=== PATIENT | female | born 2000 | race Caucasian/White ===

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

== ENCOUNTER 2018-12-10 23:52 | Inpatient (IN) ==
[2018-12-11] MEDS ORDERED: SODIUM CHLORIDE 0.9% 1000ML 1,000 ML IV ONE (00:13)
[2018-12-11] MEDS ORDERED: KETOROLAC (**for OR use only**) 30 MG/ML VIAL IV ONE (00:13)
[2018-12-11] MEDS ORDERED: KETOROLAC 30 MG/ML VIAL ONE (00:18)
[2018-12-11 00:30] LABS: Basophils # (auto) 0.05 K/uL (0-0.2); Basophils % (auto) 0.4 %; Eosinophils # (auto) 0.13 K/uL (0-0.5); Eosinophils % (auto) 1.1 %; Hematocrit (blood only) 42.6 % (37-47); Hemoglobin 14.2 g/dL (12.0-16.0); Immature Granulocytes # (auto) 0.03 K/uL (0.00-0.02); Immature Granulocytes % (auto) 0.3 %; Lymphocytes # (auto) 4.35 K/uL (1.2-3.4); Lymphocytes % (auto) 36.9 %; Mean Corpuscular Hgb Conc 33.3 g/dL (32-36); Mean Corpuscular Volume 89.9 fL (80-100); Mean Platelet Volume 9.9 fL (7.4-10.4); Monocytes # (auto) 0.85 K/uL (0.11-0.59); Monocytes % (auto) 7.2 %; Neutrophils # (auto) 6.39 K/uL (1.4-6.5); Neutrophils % (auto) 54.1 %; Platelet Count 380 K/uL (130-400); RDW Coefficient of Variation 13.3 % (11.5-14.5); Red Blood Count 4.74 M/uL (4.2-5.4)
[2018-12-11 00:52] LABS: Albumin Level 3.6 gm/dl (3.4-5.0); BUN Creatinine Ratio 11.6 (10-20); Calcium 9.1 mg/dl (8.5-10.1); Creatinine Clr Calc Pharmacy 72.4 ml/min; Est GFR (African American) 86.5; Est GFR (Non-African American) 74.7; Potassium 3.3 mmol/L (3.5-5.1)
[2018-12-11 00:54] LABS: D Dimer 2760 ug/L FEU (0-500)
[2018-12-11 01:03] LABS: Albumin Globulin Ratio 0.8 (0.9-2); Bilirubin,Total 0.4 mg/dl (0.2-1); Globulin 4.6 gm/dl (2.5-4.0); Total Protein 8.2 gm/dl (6.4-8.2); Troponin I 5.15 ng/ml (0-0.045)
[2018-12-11] MEDS ORDERED: ASPIRIN CHEW 324 MG PO STA (01:08)
[2018-12-11] MEDS ORDERED: OPTIRAY 320 125ml IV PRN (01:11)
--- NOTE | 2018-12-11 02:09 | Emergency Department Note ---
Entered by Dina Banegas acting as a scribe for History of Present Illness General Chief complaint: Chest Pain Stated complaint: CHEST PAIN,NUMBNESS IN HANDS AND FEET Source: patient History of Present Illness Onset (ago): minute(s) 45 Location: chest (center), left (hand, leg) and right (hand, leg) Pain Consistency: + other (sudden) Maximum Pain Intensity: 8 Quality: + other (chest pain) Associated symptoms: + other (Positive tingling and numbness in her hands and feet) The patient is a 18 year old female who presents to the Emergency Room with complaints of chest pain beginning 45 minutes fire [employer]. She reports she was watching TV when she suddenly developed chest pain. She notes that the pain is in the middle of her chest. It is worse with breathing/deep inspiration. She also notes that it does get worse when she moves either of her arms across her chest. She denies any other exacerbating or remitting factors. She notes she has tingling and numbness in her hands and feet. 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 Patient denies diabetes, hypertension, hyperlipidemia, CAD, history of sudden at a young age, and smoking. Does admit to a family history of heart disease. Patient denies swelling of calves, recent trips, history of immobilization or recent surgery, prior history of DVT, hemoptysis, history of malignancy, history of smoking. She does admit to using control. Denies any tearing pain going through to her back. Pain is not improved or worsened with sitting up or lying flat. She denies any recent upper respiratory symptoms or viral URIs. Home Medications Home Medications Medication Instructions Recorded Confirmed Type norethindrone-e.estradiol-iron 1 tab PO DAILY 12/11/18 12/11/18 History [Blisovi 24 Fe] Allergies Allergy/AdvReac Type Severity Reaction Status Date / Time No Known Allergies Allergy Unverified 12/11/18 00:22 Past Med/Surg History Medical History No significant past medical history Family History Other Heart disease Social History current occupational status: student Feels Safe at Home: Yes Smoking Status: Never smoker Review of Systems See HPI for pertinent positives & negatives. and A total of 10 systems reviewed and were otherwise negative Physical Exam Vital Signs Vital Signs - 24 hr 12/11/18 00:00 12/11/18 00:26 12/11/18 01:00 Temperature 36.5 C Temperature Source Oral Sepsis Recent Fever Within 48 Hours No Sepsis Action Taken by Nursing No Action Required Pulse Rate 79 71 Pulse Rate [Finger] 74 Pulse Rhythm Regular Pulse Strength Normal Respiratory Rate 18 20 Respiratory Effort / Characteristics Non-Labored Spontaneous Non-Labored Respiratory Depth Normal Normal Blood Pressure 147/94 H 129/85 Blood Pressure [Right Arm] 121/75 Blood Pressure Mean 111 99 Blood Pressure Mean [Right Arm] 90 Blood Pressure Position Sitting Blood Pressure Position [Right Arm] Lying Pulse Oximetry 100 99 Oxygen Delivery Method Room Air Room Air 12/11/18 01:19 12/11/18 01:40 Temperature Temperature Source Sepsis Recent Fever Within 48 Hours Sepsis Action Taken by Nursing Pulse Rate 64 Pulse Rate [Finger] 74 Pulse Rhythm Pulse Strength Respiratory Rate 15 22 Respiratory Effort / Characteristics Non-Labored Respiratory Depth Normal Blood Pressure Blood Pressure [Right Arm] 112/82 Blood Pressure Mean Blood Pressure Mean [Right Arm] 92 Blood Pressure Position Blood Pressure Position [Right Arm] Sitting Pulse Oximetry 93 98 Oxygen Delivery Method Room Air GENERAL: Laying in bed, anxious, no acute distress, non-toxic EYE EXAM: normal conjunctiva. OROPHARYNX: no exudate, no erythema, lips, buccal mucosa, and tongue normal and mucous membranes are moist NECK: supple, no nuchal rigidity, no adenopathy, non-tender LUNGS: Clear to auscultation. Normal chest wall mechanics CHEST: Reproducible anterior chest wall pain. Same as stated complaint. Worse with ABduction of BUE. HEART: no murmurs, S1 normal and S2 normal ABDOMEN: abdomen soft, non-tender, normo-active bowel, sounds, no masses, no rebound or guarding. BACK: Back is symmetrical on inspection and there is no deformity, no midline tenderness, no CVA tenderness. SKIN: no rashes and no bruising UPPER EXTREMITIES: upper extremities are grossly normal. LOWER EXTREMITIES: No pitting edema. Calves equal bilateral. Radial pulses equal bilateral. NEURO EXAM: Normal sensorium, cranial nerves II-XII grossly intact, normal speech, no gross weakness of arms, no gross weakness of legs. Course ED COURSE: Vital signs were reviewed and showed normotensive The patients medical record was reviewed The above diagnostic studies were performed and reviewed. ED treatments and interventions as stated above. 0006: The patient was evaluated in room C9. A complete history and physical examination was performed. 0130: Upon reevaluation, the patient is feeling better. I discussed my findings with the patient and she understands and agrees with the treatment plan. Based on the patients age, coexisting illnesses, exam and lab findings the decision to treat as an inpatient. The patient remained stable while under my care. Consultations Consultation #1: Discussed the case with Dr. Alex. He agrees with the current treatment/management and recommended aspirin which has already been given along with an echo in the morning. Recommend/agrees with holding heparin at this time as ACS unlikely. Consultation #2: Discussed with hospitalist for further evaluation. Administered Medications Ioversol (Optiray 320 125ml) 120 ml IV ONCE PRN PRN Reason: Interaction Checking Stop: 12/15/18 01:10 Last Admin: 12/11/18 01:12 Dose: 120 ml Discontinued Medications Aspirin (Aspirin) 324 mg PO NOW STA Stop: 12/11/18 01:09 Last Admin: 12/11/18 01:35 Dose: 324 mg Sodium Chloride (Nss 1000ml) 1,000 mls @ 999 mls/hr IV .Q1H1M ONE Stop: 12/11/18 01:13 Last Infusion: 12/11/18 01:36 Dose: 0 mls/hr Admin: 12/11/18 00:23 Dose: 999 mls/hr Ketorolac Tromethamine (Toradol (Or Use)) 30 mg IV ONE ONE Stop: 12/11/18 00:14 Last Admin: 12/11/18 00:23 Dose: Not Given Ketorolac Tromethamine (Toradol) Confirm Administered Dose 30 mg .ROUTE .STK- MED ONE Stop: 12/11/18 00:19 Last Admin: 12/11/18 00:22 Dose: 30 mg Medical Decision Making Differential Diagnosis Differential diagnoses includes but is not limited to acute coronary syndrome, myocardial infarction, pericarditis, pulmonary embolus, aortic dissection, pneumonia, pneumothorax, musculoskeletal, shingles, esophageal. Medical Records Attestation: I reviewed the patient's medical records. Home Medications Current Medication List: was personally reviewed by me Laboratory Data Attestation: I reviewed the patient's lab results. Result diagrams: 12/11/18 00:07 12/11/18 00:07 Lab Results 02/12/11/18 12/11/18 Range/Units 00:07 00:07 00:07 WBC 11.80 H (4.8-10.8) K/uL RBC 4.74 (4.2-5.4) M/uL Hgb 14.2 (12.0-16.0) g/dL Hct 42.6 (37-47) % MCV 89.9 (80-100) fL MCH 30.0 (25-34) pg MCHC 33.3 (32-36) g/dL RDW Std Deviation 44.0 (36.4-46.3) fL RDW Coeff of José Miguel 13.3 (11.5-14.5) % Plt Count 380 (130-400) K/uL MPV 9.9 (7.4-10.4) fL Immature Gran % (Auto) 0.3 % Neut % (Auto) 54.1 % Lymph % (Auto) 36.9 % Kingfisher % (Auto) 7.2 % Eos % (Auto) 1.1 % Baso % (Auto) 0.4 % Immature Gran # (Auto) 0.03 H (0.00-0.02) K/uL Neut # (Auto) 6.39 (1.4-6.5) K/uL Lymph # (Auto) 4.35 H (1.2-3.4) K/uL [place]isher # (Auto) 0.85 H (0.11-0.59) K/uL Eos # (Auto) 0.13 (0-0.5) K/uL Baso # (Auto) 0.05 (0-0.2) K/uL D-Dimer 2760 H* (0-500) ug/L FEU Sodium 136 (136-145) mmol/L Potassium 3.3 L (3.5-5.1) mmol/L Chloride 103 (98-107) mmol/L Carbon Dioxide 26 (21-32) mmol/L Anion Gap 7.0 (3-11) BUN 12 (7-18) mg/dl Creatinine 1.07 (0.6-1.2) mg/dl Est Cr Clr Drug Dosing 72.4 ml/min Est GFR ( Amer) 86.5 Est GFR (Non-Af Amer) 74.7 BUN/Creatinine Ratio 11.6 (10-20) Glucose 97 (70-99) mg/dl Calcium 9.1 (8.5-10.1) mg/dl Total Bilirubin 0.4 (0.2-1) mg/dl AST 55 H (15-37) U/L ALT 22 (12-78) U/L Alkaline Phosphatase 72 (45-117) U/L Total Creatine Kinase 379 H (26-192) U/L Troponin I 5.150 H* (0-0.045) ng/ml Total Protein 8.2 (6.4-8.2) gm/dl Albumin 3.6 (3.4-5.0) gm/dl Globulin 4.6 H (2.5-4.0) gm/dl Albumin/Globulin Ratio 0.8 L (0.9-2) Lipase 115 (73-393) U/L Imaging Data My Impression: Radiology results as stated below per my review and interpretation: X-ray: I interpreted the following studies. Chest: A one view study of the chest was reviewed and was negative for cardiomegaly, focal infiltrate, effusion, pulmonary edema, or wide mediastinum. No pneumothorax. Radiologist's Impression: CT PE performed of the chest shows no infiltrate, pleural effusions or pneumothorax. No PEs or aortic dissection/aneurysm. ECG Data Attestation: I personally reviewed and interpreted this ECG as follows: Indication: chest pain Rate (beats per minute): 69 Rhythm: sinus rhythm Findings: + other (normal axis, poor baseline in V3); no PVC Additional Comments: Repeat EKG shows sinus rhythm rate of 64 normal axis no PVCs with T wave flattening in the inferior leads. Blood Pressure Blood Pressure Findings: Normal blood pressure Blood Pressure Disposition: did not require urgent referral MDM Narrative Patient is a 18-year-old female with no significant past medical history that presents the ER for chest pain which started while watching TV. Pain is reproducible on exam and worsens with movement of arm across the chest. I do favor that this was musculoskeletal initially. Labs were obtained and showed a leukocytosis of 11.8. D-dimer was significantly elevated at 2600. BMP with mild hypokalemia. LFTs and bilirubin was unremarkable. Troponin was elevated at 5.1. Lipase was normal. Patient was sent for CT PE with a positive d-dimer which was negative for dissection PEs or any infiltrate. Patient was given Toradol and aspirin. Did have some mild improvement of symptoms. No AL depression or diffuse ST segment elevations on EKG to suggest pericarditis. With the elevated troponin I do favor myocarditis although no obvious respiratory or viral infection recently. CK was normal and does not suggest rhabdo. Based on her history this would be extremely unlikely to be ACS. Discussed with the superintendent power and he agreed with aspirin and recommended echo in the a.m. and holding on heparin at this time. Patient friends were updated at bedside. Discussed with the hospitalist and patient will be observed closely overnight for any changes. Impression & Plan Chest pain, Elevated troponin, Myocarditis Discharge Plan Visit Data Chief Complaint: Chest Pain Stated Complaint: CHEST PAIN,NUMBNESS IN HANDS AND FEET ED Provider: Alvarado Wilson Discharge Problem: Chest pain, Elevated troponin, Myocarditis Forms Stand Alone Forms: My [facility] Prescriptions Prescriptions: No Action norethindrone-e.estradiol-iron [Blisovi 24 Fe] 1 mg-20 mcg (24)/75 mg (4) Tablet 1 tab PO DAILY RF: 0 The scribe's documentation has been prepared under my direction and personally reviewed by me in its entirety. I confirm that the note above accurately reflects all work, treatment, procedures, and medical decision making performed by me.
--- NOTE | 2018-12-11 04:28 | History & Physical Report ---
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 She was not active nor exerting herself when the pain started and notes that nothing makes it better or worse. 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 She did have a similar instance of chest pain about 24 hours prior which did wake her up in the middle of the night, but subsided with an OTC pain reliever. She notes that she was recently standing for the entirety of [employer] at [employer], and that aside from losing her voice and dependent peripheral edema, she declines any other symptoms. She denies any sick contacts and denies illicit substance use as she is tested regularly for the [employer]. She is a social drinker on weekends, and drinks on average 3-4 drinks per day on weekends, upwards of 8 drinks at time, but no recent drinking. Family history of [place] in her father but after age 60. Only other meds she takes are OCP. Workup in the ER showed some ST changes, elevated DDimer, and an elevated troponin. CT for PE was negative. Allergies Allergy/AdvReac Type Severity Reaction Status Date / Time No Known Allergies Allergy Unverified 12/11/18 00:22 Home Medications Home Medications Medication Instructions Recorded Confirmed Type norethindrone-e.estradiol-iron 1 tab PO DAILY 12/11/18 12/11/18 History [Blisovi 24 Fe] Past Med/Surg History Medical History No significant past medical history Family History Other Heart disease Social History Current Living Situation: Other Current Living Situation Comment: Student in house with three roommates. current occupational status: student Other Information That Helps Us Care for You: No Feels Safe at Home: Yes Safety Concerns: Feels Safe At This Time Smoking Status: Never smoker Hx Alcohol Use: Yes Alcohol type: beer and hard liquor Alcohol Intake Frequency : a few times a month Hx Substance Use: No Beliefs That Will Affect Care: None Preferred Language: Slovak Communication Ability: Effective Process Pumper Required: No Review of Systems All systems reviewed & are unremarkable except as noted in HPI & below Cardiovascular: + chest pain, + chest pain at rest and + edema; no radiating jaw , neck or arm pain, no dyspnea, no dyspnea on exertion and no palpitations Physical Exam 2 Vital Signs (Past 24 Hours): Last Vital Signs Temp 36.5 C 12/11/18 00:00 Pulse 75 12/11/18 04:01 Resp 16 12/11/18 04:01 BP 105/78 12/11/18 04:01 Pulse Ox 99 12/11/18 04:01 Constitutional: WD/WN, vitals as above Eyes: PERRL, conjunctivae normal, anicteric sclerae ENMT: external ear and nose normal, oropharynx normal Neck: normal visual inspection Respiratory: normal respiratory effort, lungs clear to auscultation Cardiovascular: RRR, no murmur, no edema Gastrointestinal (Abdomen): normal bowel sounds, soft, nontender, no hepatosplenomegaly Musculoskeletal: no cyanosis or clubbing, extremities motor strength 5/5 Skin: no rashes, warm and dry Neurologic: PERRL, EOMI, accommodation nl, no face palsy, no dysarthria Psychiatric: A+Ox3, euthymic affect Results & Data Laboratory Results 12/11/18 12/11/18 12/11/18 Range/Units 02:56 00:07 00:07 WBC (4.8-10.8) K/uL RBC (4.2-5.4) M/uL Hgb (12.0-16.0) g/dL Hct (37-47) % MCV (80-100) fL MCH (25-34) pg MCHC (32-36) g/dL RDW Std Deviation (36.4-46.3) fL RDW Coeff of José Miguel (11.5-14.5) % Plt Count (130-400) K/uL MPV (7.4-10.4) fL Immature Gran % (Auto) % Neut % (Auto) % Lymph % (Auto) % [place] % (Auto) % Eos % (Auto) % Baso % (Auto) % Immature Gran # (Auto) (0.00-0.02) K/uL Neut # (Auto) (1.4-6.5) K/uL Lymph # (Auto) (1.2-3.4) K/uL Berrien # (Auto) (0.11-0.59) K/uL Eos # (Auto) (0-0.5) K/uL Baso # (Auto) (0-0.2) K/uL D-Dimer 2760 H* (0-500) ug/L FEU Sodium 136 (136-145) mmol/L Potassium 3.3 L (3.5-5.1) mmol/L Chloride 103 (98-107) mmol/L Carbon Dioxide 26 (21-32) mmol/L Anion Gap 7.0 (3-11) BUN 12 (7-18) mg/dl Creatinine 1.07 (0.6-1.2) mg/dl Est Cr Clr Drug Dosing 72.4 ml/min Est GFR ( Amer) 86.5 Est GFR (Non-Af Amer) 74.7 BUN/Creatinine Ratio 11.6 (10-20) Glucose 97 (70-99) mg/dl Calcium 9.1 (8.5-10.1) mg/dl Total Bilirubin 0.4 (0.2-1) mg/dl AST 55 H (15-37) U/L ALT 22 (12-78) U/L Alkaline Phosphatase 72 (45-117) U/L Total Creatine Kinase 379 H (26-192) U/L Troponin I 7.410 H* 5.150 H* (0-0.045) ng/ml Total Protein 8.2 (6.4-8.2) gm/dl Albumin 3.6 (3.4-5.0) gm/dl Globulin 4.6 H (2.5-4.0) gm/dl Albumin/Globulin Ratio 0.8 L (0.9-2) Lipase 115 (73-393) U/L 12/11/18 Range/Units 00:07 WBC 11.80 H (4.8-10.8) K/uL RBC 4.74 (4.2-5.4) M/uL Hgb 14.2 (12.0-16.0) g/dL Hct 42.6 (37-47) % MCV 89.9 (80-100) fL MCH 30.0 (25-34) pg MCHC 33.3 (32-36) g/dL RDW Std Deviation 44.0 (36.4-46.3) fL RDW Coeff of José Miguel 13.3 (11.5-14.5) % Plt Count 380 (130-400) K/uL MPV 9.9 (7.4-10.4) fL Immature Gran % (Auto) 0.3 % Neut % (Auto) 54.1 % Lymph % (Auto) 36.9 % Ber[place] % (Auto) 7.2 % Eos % (Auto) 1.1 % Baso % (Auto) 0.4 % Immature Gran # (Auto) 0.03 H (0.00-0.02) K/uL Neut # (Auto) 6.39 (1.4-6.5) K/uL Lymph # (Auto) 4.35 H (1.2-3.4) K/uL Berrien # (Auto) 0.85 H (0.11-0.59) K/uL Eos # (Auto) 0.13 (0-0.5) K/uL Baso # (Auto) 0.05 (0-0.2) K/uL D-Dimer (0-500) ug/L FEU Sodium (136-145) mmol/L Potassium (3.5-5.1) mmol/L Chloride (98-107) mmol/L Carbon Dioxide (21-32) mmol/L Anion Gap (3-11) BUN (7-18) mg/dl Creatinine (0.6-1.2) mg/dl Est Cr Clr Drug Dosing ml/min Est GFR ( Amer) Est GFR (Non-Af Amer) BUN/Creatinine Ratio (10-20) Glucose (70-99) mg/dl Calcium (8.5-10.1) mg/dl Total Bilirubin (0.2-1) mg/dl AST (15-37) U/L ALT (12-78) U/L Alkaline Phosphatase (45-117) U/L Total Creatine Kinase (26-192) U/L Troponin I (0-0.045) ng/ml Total Protein (6.4-8.2) gm/dl Albumin (3.4-5.0) gm/dl Globulin (2.5-4.0) gm/dl Albumin/Globulin Ratio (0.9-2) Lipase (73-393) U/L Medications Administered Current Inpatient Medications Acetaminophen (Tylenol) 650 mg PO Q4H PRN PRN Reason: Pain or Fever Stop: 01/10/19 04:29 Al Hydrox/Mg Hydrox/Simethicone (Maalox) 15 ml PO Q4H PRN PRN Reason: Dyspepsia Stop: 01/10/19 04:29 Ibuprofen (Motrin) 600 mg PO Q8H BRAD Stop: 01/10/19 04:29 Magnesium Hydroxide (Milk Of Magnesia) 30 ml PO Q12H PRN PRN Reason: Constipation Stop: 01/10/19 04:29 Miscellaneous (Order Awaiting Action) 1 ea N/A QS BRAD Stop: 01/10/19 07:59 Ondansetron HCl (Zofran) 4 mg IV Q6H PRN PRN Reason: Nausea Stop: 01/10/19 04:29 Polyethylene Glycol (Miralax Powder Packet) 17 gm PO DAILY PRN PRN Reason: Constipation Stop: 01/10/19 04:29 Potassium Chloride (Klor-Con M20) 40 meq PO QAM ONE Stop: 12/11/18 09:01 Code Status & VTE Plan Code Status full Supervising Physician Co-Signing Physician Notes Attending addendum: I have physically seen this patient, have supervised the medical residents activities, and agree with the H&P unless as otherwise noted. Assessment and Plan: Elevated troponin/presumptive myocarditis/persistent chest pain-- The patient will be admitted to telemetry for serial cardiac enzymes, serial EKG's, cardiac rhythm monitoring and a 2-D echocardiogram with Dopplers. Given aspirin 324 mg and Toradol 30 mg IV in the ED. Ibuprofen 40 mg p.o. 4 times daily while awake. Order labs: Sed rate, KAILEY, Monospot, EBV, CMV, Lyme disease, ehrlichiosis, anaplasmosis Replace potassium orally. Cardiology consult Remainder of orders notations as noted. Resident Activity Tracking Resident Involvement: Resident Care Provided Care Provided: Adult [facility] Medicine _ (1) Myocarditis Chronicity: acute Infective myocarditis organism: Myocarditis type: unspecified Qualified Code(s): I40.9 - Acute myocarditis, unspecified (2) Chest pain Chest pain type: unspecified Ischemic chest pain type: Qualified Code(s): R07.9 - Chest pain, unspecified
[2018-12-11] MEDS ORDERED: ACETAMINOPHEN 325 MG TAB PO PRN (04:30)
[2018-12-11] MEDS ORDERED: ONDANSETRON INJ 2 MG/ML 2 ML VIAL IV PRN (04:30)
[2018-12-11] MEDS ORDERED: POLYETHYLENE (MIRALAX) 17 GM PACK PO PRN (04:30)
[2018-12-11] MEDS ORDERED: ALUMINUM/MAGNESIUM SUSP 30 ML UDC PO PRN (04:30)
[2018-12-11] MEDS ORDERED: MAGNESIUM HYDROXIDE SUSP 30 ML UDC PO PRN (04:30)
[2018-12-11] MEDS: IBUPROFEN 600 MG TAB PO SCH ×3 (05:57→22:21)
--- NOTE | 2018-12-11 06:41 | XRay Report ---
XR chest 1V portable CLINICAL HISTORY: Midsternal chest pain COMPARISON STUDY: No previous studies for comparison. FINDINGS: The cardiac and mediastinal contours are normal. There is no evidence of focal pulmonary co nsolidation. There is no evidence of failure. No pleural effusions are visualized.[ There is a thorac ic scoliosis. IMPRESSION: No active disease in the chest. Electronically signed by: Chente Grant M.D. 12/11/2018 6:39 AM
[2018-12-11 07:47] LABS: Basophils # (auto) 0.04 K/uL (0-0.2); Basophils % (auto) 0.5 %; Eosinophils # (auto) 0.19 K/uL (0-0.5); Eosinophils % (auto) 2.3 %; Hematocrit (blood only) 38.6 % (37-47); Hemoglobin 12.6 g/dL (12.0-16.0); Immature Granulocytes # (auto) 0.01 K/uL (0.00-0.02); Immature Granulocytes % (auto) 0.1 %; Lymphocytes # (auto) 2.42 K/uL (1.2-3.4); Lymphocytes % (auto) 28.8 %; Mean Corpuscular Hgb Conc 32.6 g/dL (32-36); Mean Corpuscular Volume 90.6 fL (80-100); Mean Platelet Volume 9.6 fL (7.4-10.4); Monocytes # (auto) 0.84 K/uL (0.11-0.59); Neutrophils # (auto) 4.91 K/uL (1.4-6.5); Neutrophils % (auto) 58.3 %; Platelet Count 290 K/uL (130-400); RDW Coefficient of Variation 13.5 % (11.5-14.5); RDW Standard Deviation 44.1 fL (36.4-46.3); Red Blood Count 4.26 M/uL (4.2-5.4); White Blood Count 8.41 K/uL (4.8-10.8)
[2018-12-11] MEDS: BCP'S~ORDER AWAITING ACTION SCH ×3 (07:50→23:49)
--- NOTE | 2018-12-11 07:56 | CT Scan Report ---
CT angio chest PE protocol CLINICAL HISTORY: 18 years-old Female presenting with elevated d-dimer, chest pain, clinical concern for pulmonary embolus. TECHNIQUE: Multidetector CT angiography of the chest was performed after administration of intravenou s contrast. 3-D volumetric and/or maximum intensity projection (MIP) images were subsequently reconst ructed for review. IV contrast: 120 mL of Optiray 320. One or more dose lowering techniques were used consistent with the principles of ALARA (as low as reasonably achievable), including automatic expos ure control, mA or kV adjustment to individual patient size, and/or use of iterative reconstruction. COMPARISON: Chest x-ray performed earlier today. CT DOSE (mGy.cm): The estimated cumulative dose is 193.59 mGy.cm. FINDINGS: Edge Cutter topogram: Unremarkable. Pulmonary vasculature: The study is adequate for assessment of the pulmonary vascular tree. No filling defect within the pul monary arteries to suggest embolus. Main pulmonary artery is not enlarged. No flattening of the inter ventricular septum. No intracardiac filling defect. Reflux of contrast into the intrahepatic IVC. Remaining chest: Soft tissues: Normal thyroid and thoracic inlet. No axillary, supraclavicular, mediastinal, or hilar lymphadenopathy. Normal aorta. Normal heart size. No pericardial or pleural effusion. Upper abdomen n ormal. Lungs and airways: No pneumothorax. Central airways patent. No focal infiltrate or nodule. 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 Musculoskeletal: Normal osseous structures. IMPRESSION: 1. No evidence of pulmonary embolus. No acute intrathoracic pathology. Electronically signed by: Erik Ho M.D. 12/11/2018 7:55 AM
[2018-12-11 08:09] LABS: Albumin Level 3.1 gm/dl (3.4-5.0); BUN Creatinine Ratio 12.2 (10-20); C Reactive Protein 8.16 mg/dl (0-0.29); Calcium 8.6 mg/dl (8.5-10.1); Creatinine Clr Calc Pharmacy 88.1 ml/min; Est GFR (African American) 109.6; Est GFR (Non-African American) 94.6; Potassium 3.9 mmol/L (3.5-5.1)
[2018-12-11 08:13] LABS: Albumin Globulin Ratio 0.9 (0.9-2); Bilirubin,Total 0.4 mg/dl (0.2-1); Globulin 3.6 gm/dl (2.5-4.0); Total Protein 6.7 gm/dl (6.4-8.2); Troponin I 5.57 ng/ml (0-0.045)
[2018-12-11 08:40] LABS: Lyme Ab IgG w/WB Rflx Negative (Negative); Lyme Ab IgM w/WB Rflx Negative (Negative)
[2018-12-11 08:54] LABS: Appearance Urine Clear (Clear); Bilirubin Urine Negative (Negative); Color Urine Yellow; Glucose Urine UA Negative (Negative); Ketones Urine Negative (Negative); Leukocyte Esterase Urine Negative (Negative); Nitrite Urine Negative (Negative); Protein Urine Negative (Negative); Specific Gravity Urine 1.017 (1.000-1.030); Urobilinogen Urine Negative (Negative); pH Urine 7.5 (4.5-7.5)
[2018-12-11] MEDS ORDERED: POTASSIUM CHLORIDE 20 MEQ TABCR PO ONE (09:00)
--- NOTE | 2018-12-11 14:47 | History & Physical Bridge Note ---
Date of Service December 11, 2018 History & Physical Bridge Note Patient seen and examined this morning. Chest pain free. No current symptoms. Discussed with cardiology who felt she should be monitored for 48 hours given her elevated troponin. Will check Utox as well to ensure no cocaine use as cause of elevated troponin. - Will need cardiac MRI, but this will need to be arranged as an outpatient as we cannot do this inpatient.
--- NOTE | 2018-12-11 17:19 | Cardiology Consultation ---
Date of Consultation December 11, 2018 Assessment & Plan (1) Myocarditis: She has elevated troponin levels which would suggest myocardial injury. She lacks risk factors for premature CAD and therefore myocarditis or lizette myocarditis appears more likely. By her history however there has not been any recent viral prodrome that she can recall. Would recommend cardiac MRI, which can be done as an outpatient, to definitively evaluate her myocardium injury pattern. For now, supportive care. LV systolic function is normal. Monitor on telemetry for 48 hours for arrhythmia. (2) Elevated troponin: Not likely acute coronary syndrome. She is now chest pain-free. Recommend cardiac MRI as noted above as an outpatient for further evaluation. Cardiac MRI is not available at this institution and there is no urgent indication currently given her resolution of symptoms. Recommend continuous telemetry as noted above for 48 hours from presentation. Recommend tox screen to rule out cocaine (she denies but cannot rule out someone accessing her drink/ food). It was recommended to her today that strenuous cardiovascular exercise be avoided for the next 6 weeks. (3) Chest pain: Actual etiology of her symptoms and elevated troponin is not definitively known at this time. She may have acute Perimyocarditis, but without typical prodrome. Plan as above. She is currently asymptomatic. Disposition: Patient care discussed with Dr. Hancock of the primary hospitalist service. Cardiology will continue to follow. Thank you for allowing me to participate in the care of your patient. Please call for any other questions or concerns. Sincerely, Rk Alex M.D. History of Present Illness Reason for Consultation: Pericarditis. Elevated troponin. Requesting Physician: Dr. Guidry Attending Physician: Mark Hancock MD History of Present Illness Ms Blanchard is a very pleasant 18-year-old female without significant past medical history was admitted to [facility] with chest pain and elevated troponins on 12/11/2018. Last night at approximately 10:45 p.m., while sitting with friends, she developed a central chest pressure. The pain did not radiate and there was no associated shortness of breath. Her hands and her feet felt numb. She came to the hospital for evaluation and was found to have an elevated troponin. She denies any recent URI, gastrointestinal disease, or any other viral prodrome. Her chest discomfort was non positional, nonpleuritic, and without specific trigger. Pain persisted with ambulation, sitting, and also laying supine. She was given NSAIDs in the emergency department but she does not believe that the symptoms improved much. Dr. Wilson of the emergency department reported that her pain was reproducible somewhat on exam. She agrees with this today stating that palpating the area of pain, reproduced the same pain. Over this past weekend, she went 57 hours without sleep. She stood for 46 hours during [place]. SheHad no chest discomfort during that time. 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 She participates in strenuous cardiovascular exercise and does so without exertional chest discomfort or shortness of breath. She is currently chest pain-free. The chest discomfort resolved at approximately 8:15 a.m. spontaneously. She denies any recent nausea, vomiting, diarrhea, bleeding, edema, syncope, or near-syncope. She did have palpitations while hospitalized and despite this, had no arrhythmia noted on telemetry. Review of systems: As above. Review of systems otherwise negative/ unremarkable. Social history: Occasional alcohol. She denies tobacco or drugs such as cocaine. She has no children. She is from [place]. 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 Her friend, Willi, is at the bedside. Family history: Her father from [place] in his early 60s. Allergies Allergy/AdvReac Type Severity Reaction Status Date / Time No Known Allergies Allergy Unverified 12/11/18 00:22 Home Medications Home Medications Medication Instructions Recorded Confirmed Type norethindrone-e.estradiol-iron 1 tab PO DAILY 12/11/18 12/11/18 History [Blisovi 24 Fe] Patient History Medical History No significant past medical history Family History Other Heart disease Social History Current Living Situation: Other Current Living Situation Comment: Student in house with three roommates. current occupational status: student Other Information That Helps Us Care for You: No Feels Safe at Home: Yes Safety Concerns: Feels Safe At This Time Smoking Status: Never smoker Hx Alcohol Use: Yes Alcohol type: beer and hard liquor Alcohol Intake Frequency : a few times a month Hx Substance Use: No Beliefs That Will Affect Care: None Preferred Language: Kyrgyz Communication Ability: Effective Stable Cleaner Required: No Physical Exam 2 Vital Signs (Past 24 Hours): Last Vital Signs Temp 37.0 C 12/11/18 15:19 Pulse 72 12/11/18 15:19 Resp 16 12/11/18 15:19 BP 114/72 12/11/18 15:19 Pulse Ox 98 12/11/18 15:19 Physical Exam: Gen.: No acute distress. Alert and oriented. HEENT: Anicteric sclera. Neck: No JVD. No bruits. Normal carotid upstrokes bilaterally. Cardiac: PMI was nondisplaced. No ventricular heave. Regular rate and rhythm. Normal S1-S2. No murmurs, rubs, or gallops. Pulmonary: Clear to auscultation bilaterally without wheezes, rales, or rhonchi. Abdomen: Soft, nontender, nondistended, with normoactive bowel sounds. No bruits noted. Extremities: 2+ radial pulses bilaterally. 2+ posterior tibialis pulses bilaterally. No edema or cyanosis. Psychiatric: Affect appears appropriate. Chest: Nontender to palpation. Results & Data Laboratory Results Laboratory Results - last 24 hr 12/11/18 12/11/18 12/11/18 00:07 00:07 00:07 WBC 11.80 H RBC 4.74 Hgb 14.2 Hct 42.6 MCV 89.9 MCH 30.0 MCHC 33.3 RDW Std Deviation 44.0 RDW Coeff of José Miguel 13.3 Plt Count 380 MPV 9.9 Immature Gran % (Auto) 0.3 Neut % (Auto) 54.1 Lymph % (Auto) 36.9 [place] % (Auto) 7.2 Eos % (Auto) 1.1 Baso % (Auto) 0.4 Immature Gran # (Auto) 0.03 H Neut # (Auto) 6.39 Lymph # (Auto) 4.35 H [place] # (Auto) 0.85 H Eos # (Auto) 0.13 Baso # (Auto) 0.05 ESR D-Dimer 2760 H* Sodium 136 Potassium 3.3 L Chloride 103 Carbon Dioxide 26 Anion Gap 7.0 BUN 12 Creatinine 1.07 Est Cr Clr Drug Dosing 72.4 Est GFR ( Amer) 86.5 Est GFR (Non-Af Amer) 74.7 BUN/Creatinine Ratio 11.6 Glucose 97 Calcium 9.1 Total Bilirubin 0.4 AST 55 H ALT 22 Alkaline Phosphatase 72 Total Creatine Kinase 379 H Troponin I 5.150 H* C-Reactive Protein Total Protein 8.2 Albumin 3.6 Globulin 4.6 H Albumin/Globulin Ratio 0.8 L Lipase 115 Urine Color Urine Appearance Urine pH Ur Specific [place] Urine Protein Urine Glucose (UA) Urine Ketones Urine Blood Urine Nitrite Urine Bilirubin Urine Urobilinogen Ur Leukocyte Esterase Lyme Disease IgG Ab Lyme Disease IgM Ab Monoscreen 12/11/18 12/11/18 12/11/18 02:56 07:34 07:34 WBC 8.41 RBC 4.26 Hgb 12.6 Hct 38.6 MCV 90.6 MCH 29.6 MCHC 32.6 RDW Std Deviation 44.1 RDW Coeff of José Miguel 13.5 Plt Count 290 MPV 9.6 Immature Gran % (Auto) 0.1 Neut % (Auto) 58.3 Lymph % (Auto) 28.8 [place] % (Auto) 10.0 Eos % (Auto) 2.3 Baso % (Auto) 0.5 Immature Gran # (Auto) 0.01 Neut # (Auto) 4.91 Lymph # (Auto) 2.42 [place] # (Auto) 0.84 H Eos # (Auto) 0.19 Baso # (Auto) 0.04 ESR D-Dimer Sodium Potassium Chloride Carbon Dioxide Anion Gap BUN Creatinine Est Cr Clr Drug Dosing Est GFR ( Amer) Est GFR (Non-Af Amer) BUN/Creatinine Ratio Glucose Calcium Total Bilirubin AST ALT Alkaline Phosphatase Total Creatine Kinase Troponin I 7.410 H* C-Reactive Protein Total Protein Albumin Globulin Albumin/Globulin Ratio Lipase Urine Color Urine Appearance Urine pH Ur Specific [place] Urine Protein Urine Glucose (UA) Urine Ketones Urine Blood Urine Nitrite Urine Bilirubin Urine Urobilinogen Ur Leukocyte Esterase Lyme Disease IgG Ab Negative Lyme Disease IgM Ab Negative Monoscreen Negative 12/11/18 12/11/18 12/11/18 07:34 07:34 07:55 WBC RBC Hgb Hct MCV MCH MCHC RDW Std Deviation RDW Coeff of José Miguel Plt Count MPV Immature Gran % (Auto) Neut % (Auto) Lymph % (Auto) [place] % (Auto) Eos % (Auto) Baso % (Auto) Immature Gran # (Auto) Neut # (Auto) Lymph # (Auto) [place] # (Auto) Eos # (Auto) Baso # (Auto) ESR 39 H D-Dimer Sodium 138 Potassium 3.9 D Chloride 105 Carbon Dioxide 26 Anion Gap 8.0 BUN 11 Creatinine 0.88 Est Cr Clr Drug Dosing 88.1 Est GFR ( Amer) 109.6 Est GFR (Non-Af Amer) 94.6 BUN/Creatinine Ratio 12.2 Glucose 82 Calcium 8.6 Total Bilirubin 0.4 AST 43 H ALT 17 Alkaline Phosphatase 58 Total Creatine Kinase Troponin I 5.570 H* C-Reactive Protein 8.16 H Total Protein 6.7 Albumin 3.1 L Globulin 3.6 Albumin/Globulin Ratio 0.9 Lipase Urine Color Yellow Urine Appearance Clear Urine pH 7.5 Ur Specific [place] 1.017 Urine Protein Negative Urine Glucose (UA) Negative Urine Ketones Negative Urine Blood Negative Urine Nitrite Negative Urine Bilirubin Negative Urine Urobilinogen Negative Ur Leukocyte Esterase Negative Lyme Disease IgG Ab Lyme Disease IgM Ab Monoscreen Diagnostic Findings Telemetry personally reviewed: Sinus rhythm. ECGs personally reviewed. ECG 12/11/2018 at 12:07 a.m.: Sinus rhythm [address]/T-wave abnormality. ECG 12/11/2018 at 12:49 a.m.: Sinus rhythm [address]/T-wave abnormality. Echo 12/11/2018: Normal LV size, wall motion, systolic function. EF 55-60%. No LVH. No significant diastolic dysfunction. No significant valvular abnormalities. RVSP 26. CTA chest 12/11/2018: No evidence of pulmonary embolism per Radiology. No acute intrathoracic pathology per Radiology. Medications Administered Current Inpatient Medications Acetaminophen (Tylenol) 650 mg PO Q4H PRN PRN Reason: Pain or Fever Stop: 01/10/19 04:29 Al Hydrox/Mg Hydrox/Simethicone (Maalox) 15 ml PO Q4H PRN PRN Reason: Dyspepsia Stop: 01/10/19 04:29 Ibuprofen (Motrin) 600 mg PO Q8H BRAD Stop: 01/10/19 05:59 Last Admin: 12/11/18 14:25 Dose: 600 mg Magnesium Hydroxide (Milk Of Magnesia) 30 ml PO Q12H PRN PRN Reason: Constipation Stop: 01/10/19 04:29 Miscellaneous (Order Awaiting Action) 1 ea N/A QS BRAD Stop: 01/10/19 07:59 Last Admin: 12/11/18 17:02 Dose: Not Given Ondansetron HCl (Zofran) 4 mg IV Q6H PRN PRN Reason: Nausea Stop: 01/10/19 04:29 Polyethylene Glycol (Miralax Powder Packet) 17 gm PO DAILY PRN PRN Reason: Constipation Stop: 01/10/19 04:29 _ (1) Myocarditis Chronicity: acute Infective myocarditis organism: Myocarditis type: unspecified Qualified Code(s): I40.9 - Acute myocarditis, unspecified (2) Chest pain Chest pain type: unspecified Ischemic chest pain type: Qualified Code(s): R07.9 - Chest pain, unspecified
[2018-12-11] MEDS ORDERED: COUGH DROP (SUGAR FREE) LOZ 24 LOZ/1 BOX BUCCAL PRN (17:41)
[2018-12-12 02:09] LABS: Amphetamines+Metham, Urine Neg (Neg); Barbiturates, Urine Neg (Neg); Benzodiazepine, Urine Neg (Neg); Cocaine, Urine Neg (Neg); MDMA (Ecstacy), Urine Neg (Neg); Methadone, Urine Neg (Neg); Opiate, Urine Neg (Neg); Phencyclidine, Urine Neg (Neg)
[2018-12-12] MEDS: IBUPROFEN 600 MG TAB PO SCH ×3 (05:41→21:27)
[2018-12-12 07:06] LABS: Basophils # (auto) 0.04 K/uL (0-0.2); Basophils % (auto) 0.4 %; Eosinophils # (auto) 0.06 K/uL (0-0.5); Eosinophils % (auto) 0.7 %; Hematocrit (blood only) 41.5 % (37-47); Hemoglobin 13.6 g/dL (12.0-16.0); Immature Granulocytes # (auto) 0.03 K/uL (0.00-0.02); Immature Granulocytes % (auto) 0.3 %; Lymphocytes # (auto) 1.92 K/uL (1.2-3.4); Lymphocytes % (auto) 21.1 %; Mean Corpuscular Hgb Conc 32.8 g/dL (32-36); Mean Platelet Volume 9.8 fL (7.4-10.4); Monocytes # (auto) 1.14 K/uL (0.11-0.59); Monocytes % (auto) 12.5 %; Platelet Count 282 K/uL (130-400); RDW Coefficient of Variation 13.5 % (11.5-14.5); RDW Standard Deviation 44.1 fL (36.4-46.3); Red Blood Count 4.61 M/uL (4.2-5.4); White Blood Count 9.09 K/uL (4.8-10.8)
[2018-12-12 07:42] LABS: BUN Creatinine Ratio 15.5 (10-20); Calcium 8.8 mg/dl (8.5-10.1); Creatinine Clr Calc Pharmacy 78.3 ml/min; Est GFR (African American) 95.1; Potassium 3.9 mmol/L (3.5-5.1)
[2018-12-12 07:51] LABS: Troponin I 1.52 ng/ml (0-0.045)
[2018-12-12 12:08] LABS: Influenza B virus by PCR Neg for Influ B (Neg)
[2018-12-12 12:09] LABS: Epstein Barr Virus Early Ag Ab < 9.00 U/ML
[2018-12-12] MEDS ORDERED: AMOXICILLIN 500 MG CAP PO SCH (13:30)
[2018-12-12] MEDS: OSELTAMIVIR PHOSPHATE 75 MG CAP PO SCH ×2 (13:57→21:27)
[2018-12-12] MEDS: BCP'S~ORDER AWAITING ACTION SCH ×3 (15:01→23:53)
--- NOTE | 2018-12-12 17:39 | Discharge Summary ---
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 She was not active nor exerting herself when the pain started and notes that nothing makes it better or worse. 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 She did have a similar instance of chest pain about 24 hours prior which did wake her up in the middle of the night, but subsided with an OTC pain reliever. She notes that she was recently standing for the entirety of [place]ON at [facility], and that aside from losing her voice and dependent peripheral edema, she declines any other symptoms. She denies any sick contacts and denies illicit substance use as she is tested regularly for the [employer]. She is a social drinker on weekends, and drinks on average 3-4 drinks per day on weekends, upwards of 8 drinks at time, but no recent drinking. Family history of SD in her father but after age 60. Only other meds she takes are OCP. Workup in the ER showed some ST changes, elevated DDimer, and an elevated troponin. CT for PE was negative. Principal Diagnosis Myocarditis caused by Strep A or influenza Discharge Exam Constitutional WD/WN, vitals as above Eyes PERRL, conjunctivae normal, anicteric sclerae ENMT external ear and nose normal, oropharynx normal Neck normal visual inspection Respiratory normal respiratory effort, lungs clear to auscultation Cardiovascular RRR, no murmur, no edema Gastrointestinal (Abdomen) normal bowel sounds, soft, nontender, no hepatosplenomegaly Musculoskeletal no cyanosis or clubbing, extremities motor strength 5/5 Skin no rashes, warm and dry Neurologic PERRL, EOMI, accommodation nl, no face palsy, no dysarthria Psychiatric A+Ox3, euthymic affect Discharge Data Allergies Allergy/AdvReac Type Severity Reaction Status Date / Time No Known Allergies Allergy Unverified 12/11/18 00:22 Consultations 12/11/18 01:38 ED Decision to Admit Stat 12/11/18 04:30 Consult Cardiology Routine Ordered Studies 12/11/18 00:57 CT angio chest PE protocol Urgent Hospital Course (1) Myocarditis: Myocarditis likely caused by Group A strep infection and/or influenza. Troponin peaked at 7.5 on 12/11, and was down to 1.5 by discharge. Seen by cardiology with activity restriction until cleared. - Toxicology screen was negative. EBV testing showed prior infection, not acute. KAILEY was still pending on discharge. - Discharged on amoxicillin for Group A strep and Tamiflu for influenza. - Will follow up with cardiology in 2 weeks to hopefully get cleared for physical activity. (2) Elevated troponin: (3) Chest pain: (4) Hypokalemia: Total Time Total Time Spent Total Time Spent (In Minutes): 45 Total Time Includes: Examination of the Patient, Discharge Planning, Medication Reconciliation and Communication With Other Providers Discharge Plan Discharge Items Patient Disposition: Home - Self-Care Reason For Visit: MYOCARDITIS Discharge Diagnosis: Strep throat, influenza causing myocarditis Discharge Goals: Diagnostic testing and Improve disease control Activity: As commented below Activity Comment: No intense activity until cleared by cardiology Exercise/Sports: Wait until after follow-up appointment Exercise Comment: None until cleared by cardiology Non-emergency contact: Primary Care Provider and Database Management Specialist Call non-emergency contact if: your symptoms worsen, your pain is unusual for you and your temperature is above 101 Follow-up/Referrals: [facility] [Outside] (Please, follow up at [facility]. *The phone number is [phone].) Lane Alex MD [Database Management Specialist] - (Please, follow up at [facility] Cardiology Office. *The office is located in [address] of [facility]. This is the big building next to the hospital. The address is [address] [place] [address] in [place]. The office phone number is [phone].) Diet: Regular Addtl Provider Instructions: Ms. Blanchard, You were admitted to the hospital with chest pain which we found was related to stress on the heart. We call this stress or inflammation "myocarditis." Myocarditis can be caused by many things, but an infection is often the cause. In this case, you tested positive for both the flu and Strep throat. Both of these infections can cause myocarditis, so it is impossible to tell which (or if both) of the infections caused the inflammation. Regardless of what the cause was, your heart inflammation was resolving by the day of discharge. We are starting you on Tamiflu for the influenza and amoxicillin for the Strep throat. The Tamiflu is 2 times per day, and the amoxicillin is 1 time per day. Please take both medications until they are gone. The antibiotic is especially important as you will still have some Strep bacteria in your throat even after you feel better in a few days. Please come back to the hospital with any further chest pain, worsening sore throat, fevers that don't improve within the next 24 hours, throat pain, throat swelling, shortness of breath, or any other concerning symptoms. Prescriptions: New amoxicillin 500 mg Capsule 1,000 mg PO DAILY 10 Days Qty: 20 RF: 0 oseltamivir [Tamiflu] 75 mg Capsule 75 mg PO BID Qty: 9 RF: 0 Continue norethindrone-e.estradiol-iron [Blisovi 24 Fe] 1 mg-20 mcg (24)/75 mg (4) Tablet 1 tab PO DAILY RF: 0 Stand-Alone Forms: [facility] Discharge Orders: Discharge Order (Routine); Ordered 12/12/18 Ordered By: Mark Hancock Admission Data Admit Date/Time: 12/11/18 03:35 Attending Provider: Mark Hancock Admit Provider: Jaylene Guidry Primary Care Provider: [facility] Other Providers: Lane Alex ; Mark Hancock Service: Telemetry
--- NOTE | 2018-12-12 18:22 | Cardiology Progress Note ---
Date of Service December 12, 2018 Assessment & Plan (1) Myocarditis: Her presentation is consistent with acute myocarditis, especially given influenza A and strep throat presentation. Complete 48 hours of telemetry which will be completed later tonight. From a cardiac standpoint, she can be discharged tomorrow if she does not have any further cardiac issues throughout the remainder of her hospital stay. We had discussed cardiac MRI, but now that she has demonstrated a viral illness and her presentation is more consistent with acute myocarditis, cardiac MRI is no longer needed at this time. Refrain from strenuous activities for 6 weeks. As she has not had any further chest pain, no specific therapy recommended for that at this time. (2) Elevated troponin: Likely secondary to acute myocarditis as above. (3) Chest pain: This has resolved. If it returns, would recommend aspirin 325 mg twice daily or NSAID with meals for 1 week and then p.r.n. with colchicine 0.6 mg p.o. b.i.d. for 3 months. Given the fact that her chest pain resolved without specific intervention and she has not had any further chest pain since presentation, no specific therapy is recommended at this time. Disposition: Follow-up in Cardiology office in approximately 2-3 weeks. She can be discharged from a cardiac standpoint tomorrow if no further cardiac issues occur. Patient care has been discussed with Dr. Hancock earlier today. Subjective She denies any further chest pain. She denies shortness of breath, syncope, near-syncope, or palpitations. She has developed a fever and has been diagnosed with influenza a as well as strep throat. She has a sore throat and feels myalgias throughout her body. Review of systems: As above. Physical Exam 2 Vital Signs (Past 24 Hours): Last Vital Signs Temp 36.4 C L 12/12/18 15:31 Pulse 74 12/12/18 15:31 Resp 19 12/12/18 15:31 BP 109/69 12/12/18 15:31 Pulse Ox 97 12/12/18 15:31 Physical Exam: Gen.: No acute distress. Alert and oriented. HEENT: Anicteric sclera. Neck: No JVD. Cardiac: Regular. Normal S1-S2. No murmurs, rubs, or gallops. Pulmonary: Clear to auscultation bilaterally without wheezes, rales, or rhonchi. Abdomen: Soft, nontender, nondistended, with normoactive bowel sounds. No bruits noted. Extremities: No edema or cyanosis. Psychiatric: Affect appears appropriate. Results & Data Laboratory Results Laboratory Results - last 24 hr 12/11/18 12/12/18 12/12/18 07:34 00:20 00:20 WBC RBC Hgb Hct MCV MCH MCHC RDW Std Deviation RDW Coeff of José Miguel Plt Count MPV Immature Gran % (Auto) Neut % (Auto) Lymph % (Auto) [place] % (Auto) Eos % (Auto) Baso % (Auto) Immature Gran # (Auto) Neut # (Auto) Lymph # (Auto) [place] # (Auto) Eos # (Auto) Baso # (Auto) Sodium Potassium Chloride Carbon Dioxide Anion Gap BUN Creatinine Est Cr Clr Drug Dosing Est GFR ( Amer) Est GFR (Non-Af Amer) BUN/Creatinine Ratio Glucose Calcium Troponin I Urine Creatinine 2 Cancelled Urine Opiates Screen Cancelled Neg Ur Opiates Confirm Cancelled Ur Oxycodone Screen Cancelled Ur Methadone, Qual Cancelled Neg Ur Methadone Cancelled Urine Barbiturates Cancelled Neg Ur Barbiturate Confirm Cancelled Ur Phencyclidine Scrn Cancelled Ur Phencyclidine (PCP) Neg Urine PCP Confirm Cancelled Ur Amphetamines Screen Cancelled U Amphetamines Confirm Cancelled U Amphetamin/Meth Scrn Neg MDMA (Ecstasy) Screen Neg U Benzodiazepines Scrn Cancelled Neg U Benzodiazepine Confm Cancelled Urine Cocaine Cancelled Ur Cocaine Metabolite Neg U Cocaine Metab Confirm Cancelled U Marijuana (THC) Screen Cancelled Neg U Marijuana (THC) Confirm Cancelled U THC/Creatinine Ratio Cancelled Ur Drug Screen Comment Cancelled EBV Capsid Ag IgG Ab 437.00 H EBV Capsid Ag IgM Ab < 36.00 EBV EA Restrict+Diffuse < 9.00 EBV Nuclear Antigen Ab 230.00 H Influenza Type A (PCR) Influenza Type B (PCR) 12/12/18 12/12/18 12/12/18 06:44 06:44 11:10 WBC 9.09 RBC 4.61 Hgb 13.6 Hct 41.5 MCV 90.0 MCH 29.5 MCHC 32.8 RDW Std Deviation 44.1 RDW Coeff of José Miguel 13.5 Plt Count 282 MPV 9.8 Immature Gran % (Auto) 0.3 Neut % (Auto) 65.0 Lymph % (Auto) 21.1 [place] % (Auto) 12.5 Eos % (Auto) 0.7 Baso % (Auto) 0.4 Immature Gran # (Auto) 0.03 H Neut # (Auto) 5.90 Lymph # (Auto) 1.92 [place] # (Auto) 1.14 H Eos # (Auto) 0.06 Baso # (Auto) 0.04 Sodium 137 Potassium 3.9 Chloride 103 Carbon Dioxide 27 Anion Gap 7.0 BUN 15 Creatinine 0.99 Est Cr Clr Drug Dosing 78.3 Est GFR ( Amer) 95.1 Est GFR (Non-Af Amer) 82.0 BUN/Creatinine Ratio 15.5 Glucose 89 Calcium 8.8 Troponin I 1.520 H* Urine Creatinine 2 Urine Opiates Screen Ur Opiates Confirm Ur Oxycodone Screen Ur Methadone, Qual Ur Methadone Urine Barbiturates Ur Barbiturate Confirm Ur Phencyclidine Scrn Ur Phencyclidine (PCP) Urine PCP Confirm Ur Amphetamines Screen U Amphetamines Confirm U Amphetamin/Meth Scrn MDMA (Ecstasy) Screen U Benzodiazepines Scrn U Benzodiazepine Confm Urine Cocaine Ur Cocaine Metabolite U Cocaine Metab Confirm U Marijuana (THC) Screen U Marijuana (THC) Confirm U THC/Creatinine Ratio Ur Drug Screen Comment EBV Capsid Ag IgG Ab EBV Capsid Ag IgM Ab EBV EA Restrict+Diffuse EBV Nuclear Antigen Ab Influenza Type A (PCR) Pos for Influ A A* Influenza Type B (PCR) Neg for Influ B Diagnostic Findings Telemetry personally reviewed: Sinus rhythm. Medications Administered Current Inpatient Medications Acetaminophen (Tylenol) 650 mg PO Q4H PRN PRN Reason: Pain or Fever Stop: 01/10/19 04:29 Last Admin: 12/11/18 23:49 Dose: 650 mg Al Hydrox/Mg Hydrox/Simethicone (Maalox) 15 ml PO Q4H PRN PRN Reason: Dyspepsia Stop: 01/10/19 04:29 Amoxicillin (Amoxil) 1,000 mg PO DAILY BRAD; Protocol Stop: 12/22/18 13:29 Last Admin: 12/12/18 13:57 Dose: 1,000 mg Ibuprofen (Motrin) 600 mg PO Q8H BRAD Stop: 01/10/19 05:59 Last Admin: 12/12/18 13:59 Dose: 600 mg Magnesium Hydroxide (Milk Of Magnesia) 30 ml PO Q12H PRN PRN Reason: Constipation Stop: 01/10/19 04:29 Menthol (Nice) 1 ayala BUCCAL Q1H PRN PRN Reason: Sore Throat Stop: 01/10/19 17:40 Last Admin: 12/11/18 18:49 Dose: 1 ayala Miscellaneous (Order Awaiting Action) 1 ea N/A QS [facility] Stop: 01/10/19 07:59 Last Admin: 12/12/18 16:01 Dose: 1 ea Ondansetron HCl (Zofran) 4 mg IV Q6H PRN PRN Reason: Nausea Stop: 01/10/19 04:29 Oseltamivir Phosphate (Tamiflu) 75 mg PO BID [facility] Stop: 12/17/18 13:09 Last Admin: 12/12/18 13:57 Dose: 75 mg Polyethylene Glycol (Miralax Powder Packet) 17 gm PO DAILY PRN PRN Reason: Constipation Stop: 01/10/19 04:29 _ (1) Myocarditis Chronicity: acute Infective myocarditis organism: Myocarditis type: unspecified Qualified Code(s): I40.9 - Acute myocarditis, unspecified (2) Chest pain Chest pain type: unspecified Ischemic chest pain type: Qualified Code(s): R07.9 - Chest pain, unspecified
[2018-12-13] MEDS: IBUPROFEN 600 MG TAB PO SCH (05:35)
[2018-12-13 05:54] LABS: Basophils # (auto) 0.04 K/uL (0-0.2); Basophils % (auto) 0.5 %; Eosinophils # (auto) 0.06 K/uL (0-0.5); Eosinophils % (auto) 0.7 %; Hematocrit (blood only) 42.4 % (37-47); Immature Granulocytes # (auto) 0.04 K/uL (0.00-0.02); Immature Granulocytes % (auto) 0.5 %; Lymphocytes # (auto) 2.57 K/uL (1.2-3.4); Lymphocytes % (auto) 29.2 %; Mean Corpuscular Volume 91.6 fL (80-100); Mean Platelet Volume 9.6 fL (7.4-10.4); Monocytes # (auto) 1.05 K/uL (0.11-0.59); Monocytes % (auto) 11.9 %; Neutrophils # (auto) 5.03 K/uL (1.4-6.5); Neutrophils % (auto) 57.2 %; Platelet Count 295 K/uL (130-400); RDW Coefficient of Variation 13.8 % (11.5-14.5); RDW Standard Deviation 46.2 fL (36.4-46.3); Red Blood Count 4.63 M/uL (4.2-5.4); White Blood Count 8.79 K/uL (4.8-10.8)
[2018-12-13 06:30] LABS: BUN Creatinine Ratio 14.9 (10-20); Calcium 8.7 mg/dl (8.5-10.1); Creatinine Clr Calc Pharmacy 80.7 ml/min; Est GFR (African American) 98.7; Est GFR (Non-African American) 85.1; Potassium 4.3 mmol/L (3.5-5.1)
[2018-12-13] MEDS ORDERED: AMOXICILLIN 500 MG CAP PO STA (07:39)
[2018-12-13] MEDS: OSELTAMIVIR PHOSPHATE 75 MG CAP PO SCH (08:26)
[2018-12-13] MEDS: BCP'S~ORDER AWAITING ACTION SCH (08:26)
--- NOTE | 2018-12-13 17:17 | Hospitalist Progress Note ---
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 Troponin peaked at 7.5 on 12/11, and was down to 1.5 by discharge. Seen by cardiology with activity restriction until cleared. - Toxicology screen was negative. EBV testing showed prior infection, not acute. KAILEY was still pending on discharge. - Started amoxicillin for Group A strep and Tamiflu for influenza. - Will follow up with cardiology in 2 weeks to hopefully get cleared for physical activity. (2) Elevated troponin: (3) Chest pain: (4) Hypokalemia: Subjective Doing well. No further fevers. No chest pain. Feels well. Reports no fevers/ chills, chest pain, shortness of breath, abdominal pain, nausea, or vomiting. Physical Exam 2 Vital Signs (Past 24 Hours): Last Vital Signs Temp 36.8 C 12/13/18 08:46 Pulse 68 12/13/18 08:46 Resp 18 12/13/18 08:46 BP 127/73 12/13/18 08:46 Pulse Ox 97 12/13/18 08:46 Constitutional: WD/WN, vitals as above Eyes: PERRL, conjunctivae normal, anicteric sclerae ENMT: external ear and nose normal, oropharynx normal Neck: normal visual inspection Respiratory: normal respiratory effort, lungs clear to auscultation Cardiovascular: RRR, no murmur, no edema Gastrointestinal (Abdomen): normal bowel sounds, soft, nontender, no hepatosplenomegaly Musculoskeletal: no cyanosis or clubbing, extremities motor strength 5/5 Skin: no rashes, warm and dry Neurologic: PERRL, EOMI, accommodation nl, no face palsy, no dysarthria Psychiatric: A+Ox3, euthymic affect _ (1) Myocarditis Chronicity: acute Infective myocarditis organism: Myocarditis type: unspecified Qualified Code(s): I40.9 - Acute myocarditis, unspecified (2) Chest pain Chest pain type: unspecified Ischemic chest pain type: Qualified Code(s): R07.9 - Chest pain, unspecified
[2018-12-17 20:34] LABS: Anti Nuclear Antibody Screen NEGATIVE (NEGATIVE); CMV IgG Antibody <0.60 U/ML; CMV IgM Antibody <30.00 Au/mL; Coxsackie B1 <1:8 (<1:8); Coxsackie B2 <1:8 (<1:8); Coxsackie B3 <1:8 (<1:8); Coxsackie B4 <1:8 (<1:8); Coxsackie B6 <1:8 (<1:8); Epstein Barr Virus Early Ag Ab < 9.00 U/ML
== END 2018-12-13 09:46 | disposition home or self-care (01) | DRG 866 ==
LOC: ED 23:52 → SUATTDRO 12-11 03:35 → 2S 12-11 03:35